=== PATIENT | female | born 1995 | race Hispanic/Latino ===

== ENCOUNTER 2021-05-18 12:59 | Emergency (ER) | payer OTHER ==
[~2021-05-18] VITALS: Ht 162.6 cm; Wt 80.3 kg
[2021-05-18] MEDS ORDERED: ONDANSETRON HCL INJ 2MG/ML 2ML 2 MG/ML VIAL IV NR (14:30)
[2021-05-18] MEDS ORDERED: SODIUM CHLORIDE 0.9% 1000ML 1,000 ML IV ONE (14:30)
[2021-05-18] MEDS ORDERED: SODIUM CHLORIDE 0.9% 1000ML 1,000 ML ONE (14:41)
[2021-05-18] MEDS ORDERED: ONDANSETRON HCL INJ 2MG/ML 2ML 2 MG/ML VIAL ONE (14:41)
[2021-05-18] MEDS ORDERED: DICYCLOMINE HCL 20 MG TAB PO ONE (15:30)
[2021-05-18] MEDS ORDERED: ONDANSETRON ODT4 MG PO (15:30)
[2021-05-18] MEDS ORDERED: LEVSIN-SL0.125 MG SL (15:31)
[2021-05-18] MEDS ORDERED: DICYCLOMINE HCL 10 MG CAP ONE (15:40)
== END 2021-05-18 15:45 | disposition home or self-care (01) ==
LOC: FSED 14:10
DX: R10.9 Unspecified abdominal pain (principal); R19.7 Diarrhea, unspecified; R11.0 Nausea; R53.81 Other malaise
CPT/HCPCS: 80048; 80076; 81003; 81025; 85025; 96374; 99283; J2405; J7030